=== PATIENT | male | born 1945 | race Caucasian/White ===

== ENCOUNTER 2019-09-28 20:47 | Inpatient (IN) ==
[2019-09-28] MEDS ORDERED: 0.9 % Sodium Chloride 500 ML IVC ONE ×2 (21:00→21:24)
[2019-09-28 21:39] LABS: Hematocrit 38.1 % (37.5-50.1); Hemoglobin 12.8 g/dL (12.9-16.9); Mean Corpuscular HGB Conc 33.6 g/dL (31.6-35.5); Mean Corpuscular Hemoglobin 30.8 pg (28.0-33.3); Mean Corpuscular Volume 91.6 fL (83.0-100.0); Mean Platelet Volume 11.4 fL (9.4-12.4); Platelet Count 172 K/mcL (140-400); Red Blood Count 4.16 M/mcL (4.19-5.50); Red Cell Distribution Width 13.9 % (11.5-14.5)
[2019-09-28] MEDS ORDERED: Piperacillin/Tazobactam 3.375 GM in 0.9 % Sodium Chloride Mini Bag 100 ML IVPB ONE (21:42)
[2019-09-28] MEDS ORDERED: Vancomycin 1,500 MG/265 ML IV.SOLN IVPB ONE (21:42)
[2019-09-28] MEDS ORDERED: Azithromycin 500 MG in 0.9 % Sodium Chloride 250 ML IVPB ONE (21:42)
[2019-09-28 22:05] LABS: Alanine Aminotransferase 26 Units/L (7-52); Albumin 3.7 g/dL (3.5-5.7); Albumin/Globulin Ratio 1.4 (1.1-2.2); Alkaline Phosphatase 51 Units/L (34-104); Aspartate Amino Transferase 54 Units/L (13-39); BUN/Creatinine Ratio 16 (6-26); Bilirubin,Direct 0.8 mg/dL (0.0-0.2); Bilirubin,Indirect 4.2 mg/dL (0.0-1.0); Blood Urea Nitrogen 23 mg/dL (8-23); Calcium 8.9 mg/dL (8.6-10.3); Carbon Dioxide 22 mEq/L (23-29); Chloride 95 mEq/L (98-107); Ethanol < 10 mg/dL (Less than 10); Globulin 2.6 g/dL (2.4-3.5); Glucose 116 mg/dL (70-105); Osmolality,Calculated 271 (280-300); Sodium 128 mEq/L (136-145); Total Protein 6.3 g/dL (6.4-8.9); Troponin I 0.07 ng/mL (< 0.04); eGFR For African Americans > 60 (> 60); eGFR For Non-African Americans 50 (> 60)
[2019-09-28 22:09] LABS: Dohle Bodies Present (Not Present); Lymphocytes # 1.2 K/mcL (0.6-4.6); Neutrophils # 11.1 K/mcL (1.6-8.9); Reactive Lymphocytes Present (Not Present)
[2019-09-28 22:11] LABS: Platelet Estimate Normal (Normal)
[2019-09-28 22:18] LABS: Poikilocytosis 1+ (Not Present)
[2019-09-28] MEDS ORDERED: Piperacillin/Tazobactam 3.375 GM in Water for inj. (sterile) 20 ML IVP ONE (23:10)
[2019-09-29] MEDS ORDERED: Norepinephrine 4 MG/254 ML IV.SOLN IVC SCH (03:00)
[2019-09-29] MEDS: Norepinephrine 4 MG/254 ML IV.SOLN IVC SCH ×2 (03:49→09:53)
[2019-09-29] MEDS ORDERED: Naloxone 0.4 MG/ML INJ IVP PRN (05:09)
[2019-09-29] MEDS: Piperacillin/Tazobactam 3.375 GM in 0.9 % Sodium Chloride Mini Bag 100 ML IVPB SCH ×2 (06:28→15:54)
[2019-09-29 06:31] LABS: ABG Base Excess -1 mEq/L (-2 to 3); ABG HCO3 23 mEq/L (21-27); ABG Oxygen Saturation 99 % (95-98); ABG PCO2 36 mmHg (35-45); ABG PH 7.41 pH Units (7.32-7.45); ABG PO2 149 mmHg (85-104); ABG TCO2 24 mEq/L (20-26); Blood Gas Modality avaps; Blood Gas Pressure Support 10 cm H2O; Blood Gas VT 500 cc
[2019-09-29 06:37] LABS: Hematocrit 36.5 % (37.5-50.1); Hemoglobin 11.9 g/dL (12.9-16.9); Mean Corpuscular HGB Conc 32.6 g/dL (31.6-35.5); Mean Corpuscular Hemoglobin 29.9 pg (28.0-33.3); Mean Corpuscular Volume 91.7 fL (83.0-100.0); Mean Platelet Volume 10.6 fL (9.4-12.4); Platelet Count 184 K/mcL (140-400); Red Blood Count 3.98 M/mcL (4.19-5.50); Red Cell Distribution Width 14.1 % (11.5-14.5)
[2019-09-29 07:04] LABS: Alanine Aminotransferase 25 Units/L (7-52); Albumin 3.5 g/dL (3.5-5.7); Albumin/Globulin Ratio 1.3 (1.1-2.2); Alkaline Phosphatase 53 Units/L (34-104); Aspartate Amino Transferase 48 Units/L (13-39); BUN/Creatinine Ratio 20 (6-26); Bilirubin,Total 5.1 mg/dL (0.3-1.0); Blood Urea Nitrogen 22 mg/dL (8-23); Calcium 8.7 mg/dL (8.6-10.3); Carbon Dioxide 24 mEq/L (23-29); Chloride 98 mEq/L (98-107); Globulin 2.6 g/dL (2.4-3.5); Glucose 118 mg/dL (70-105); Large Platelets Present (Not Present); Lymphocytes # 0.9 K/mcL (0.6-4.6); Magnesium 1.7 mg/dL (1.6-2.6); Monocytes # 0.3 K/mcL (0.0-1.3); Neutrophils # 13.8 K/mcL (1.6-8.9); Osmolality,Calculated 276 (280-300); Phosphorous 2.7 mg/dL (2.7-4.5); Platelet Estimate Normal (Normal); Poikilocytosis 1+ (Not Present); Potassium 3.8 mEq/L (3.5-5.1); Sodium 131 mEq/L (136-145); Total Protein 6.1 g/dL (6.4-8.9); Toxic Granulation Present (Not Present); Troponin I 0.05 ng/mL (< 0.04); eGFR For African Americans > 60 (> 60); eGFR For Non-African Americans > 60 (> 60)
[2019-09-29 07:05] LABS: Reactive Lymphocytes Present (Not Present)
[2019-09-29] MEDS ORDERED: *HR* LORazepam 2 MG/ML VIAL IVP PRN ×3 (07:34)
[2019-09-29] MEDS ORDERED: Perflutren Lipid Microsphere 1.3 ML in 0.9 % Sodium Chloride 8.7 ML IVP ONE (09:16)
[2019-09-29 09:30] LABS: D-Dimer 1231 ng/mLFEU (0-500)
[2019-09-29 09:32] LABS: Fibrinogen 816 mg/dL (169-393)
[2019-09-29 09:48] LABS: Hepatitis B Surface Antigen Nonreactive (Nonreactive)
[2019-09-29 10:17] LABS: Hepatitis B Core IgM Nonreactive (Nonreactive); Hepatitis C Virus Antibody Nonreactive (Nonreactive)
[2019-09-29 10:19] LABS: Hepatitis A Antibody IgM Nonreactive (Nonreactive)
[2019-09-29] MEDS ORDERED: Vancomycin 1,500 MG/265 ML IV.SOLN IVPB SCH (11:00)
[2019-09-29 14:32] LABS: Amphetamine Screen,Urine Negative ng/mL (Cutoff=1000); Barbiturate Screen,Urine Negative ng/mL (Cutoff=200); Benzodiazepines Screen,Urine Negative ng/mL (Cutoff=200); Cannabinoid Screen,Urine Negative ng/mL (Cutoff = 50); Cocaine Screen,Urine Negative ng/mL (Cutoff= 300); Opiate Screen,Urine Negative ng/mL (Cutoff=300); Phencyclidine Screen,Urine Negative ng/mL (Cutoff=25)
[2019-09-29] MEDS ORDERED: Thiamine (B-1) 100 MG, Folic Acid 1 MG, MVI, adult with vitamin K 10 ML in 0.9 % Sodi... IVPB SCH (18:00)
[2019-09-29] MEDS ORDERED: Azithromycin 500 MG in D5% in Water 250 ML IVPB SCH (21:00)
[2019-09-30] MEDS: Piperacillin/Tazobactam 3.375 GM in 0.9 % Sodium Chloride Mini Bag 100 ML IVPB SCH ×3 (01:06→16:50)
[2019-09-30 05:18] LABS: Basophils % 0.2 %; Eosinophils # 0.3 K/mcL (0.0-0.6); Eosinophils % 2.3 %; Hematocrit 36.3 % (37.5-50.1); Hemoglobin 11.8 g/dL (12.9-16.9); Immature Granulocytes % 0.4 % (0-4); Lymphocytes % 8.1 %; Mean Corpuscular HGB Conc 32.5 g/dL (31.6-35.5); Mean Corpuscular Hemoglobin 29.9 pg (28.0-33.3); Mean Corpuscular Volume 92.1 fL (83.0-100.0); Mean Platelet Volume 11.3 fL (9.4-12.4); Monocytes # 0.7 K/mcL (0.0-1.3); Monocytes % 5.7 %; Platelet Count 157 K/mcL (140-400); Red Blood Count 3.94 M/mcL (4.19-5.50); Red Cell Distribution Width 13.7 % (11.5-14.5); Segmented Neutrophils % 83.3 %
[2019-09-30 05:42] LABS: Alanine Aminotransferase 27 Units/L (7-52); Albumin 3.5 g/dL (3.5-5.7); Albumin/Globulin Ratio 1.3 (1.1-2.2); Alkaline Phosphatase 57 Units/L (34-104); Aspartate Amino Transferase 37 Units/L (13-39); BUN/Creatinine Ratio 19 (6-26); Bilirubin,Total 4.4 mg/dL (0.3-1.0); Blood Urea Nitrogen 14 mg/dL (8-23); Calcium 8.8 mg/dL (8.6-10.3); Carbon Dioxide 26 mEq/L (23-29); Chloride 99 mEq/L (98-107); Globulin 2.7 g/dL (2.4-3.5); Glucose 93 mg/dL (70-105); Osmolality,Calculated 280 (280-300); Potassium 3.2 mEq/L (3.5-5.1); Sodium 135 mEq/L (136-145); Total Protein 6.2 g/dL (6.4-8.9); eGFR For African Americans > 60 (> 60); eGFR For Non-African Americans > 60 (> 60)
[2019-09-30 06:07] LABS: Magnesium 1.9 mg/dL (1.6-2.6); Phosphorous 1.8 mg/dL (2.7-4.5)
[2019-09-30 06:08] LABS: Activated Partial Thrombo Time 27.4 Seconds (26.0-36.0)
[2019-09-30 06:09] LABS: INR 1.3; Prothrombin Time 14.9 Seconds (9.4-12.1)
[2019-09-30] MEDS ORDERED: Potassium Chloride 40 MEQ/200 ML BAG IVPB PRN ×2 (06:09→10:49)
[2019-09-30] MEDS ORDERED: Potassium Phosphate 44 MEQ in 0.9 % Sodium Chloride 250 ML IVPB PRN ×2 (06:14→10:49)
[2019-09-30] MEDS ORDERED: cefTRIAXone 2,000 MG in Water for inj. (sterile) 20 ML IVP SCH (09:00)
[2019-09-30] MEDS ORDERED: predniSONE 20 MG TABLET PO SCH (09:00)
[2019-09-30] MEDS ORDERED: Budesonide/Formoterol 160/4.5 1 PUFF INH IH SCH (10:00)
[2019-09-30] MEDS ORDERED: *HR* Heparin 5,000 UNIT/ML VIAL IVP ONE (10:10)
[2019-09-30] MEDS ORDERED: *HR* Heparin 5,000 UNIT/ML VIAL IVP PRN ×2 (10:10)
[2019-09-30] MEDS ORDERED: Heparin 25,000 UNIT/250 ML D5W 25,000 UNIT/250 ML IV.SOLN IVC SCH (10:15)
[2019-09-30] MEDS ORDERED: Thiamine (B-1) 100 MG, Folic Acid 1 MG, MVI, adult with vitamin K 10 ML in 0.9 % Sodi... IVPB SCH (18:00)
[2019-09-30] MEDS: Budesonide/Formoterol 160/4.5 1 PUFF INH IH SCH (20:18)
[2019-09-30] MEDS ORDERED: Azithromycin 500 MG in D5% in Water 250 ML IVPB SCH (21:00)
[2019-10-01] MEDS: Piperacillin/Tazobactam 3.375 GM in 0.9 % Sodium Chloride Mini Bag 100 ML IVPB SCH ×2 (00:33→08:30)
[2019-10-01 02:20] LABS: Hemoglobin 11.2 g/dL (12.9-16.9); Mean Corpuscular HGB Conc 31.1 g/dL (31.6-35.5); Mean Corpuscular Hemoglobin 29.6 pg (28.0-33.3); Mean Corpuscular Volume 95.2 fL (83.0-100.0); Mean Platelet Volume 11.2 fL (9.4-12.4); Platelet Count 161 K/mcL (140-400); Red Blood Count 3.78 M/mcL (4.19-5.50); Red Cell Distribution Width 13.8 % (11.5-14.5)
[2019-10-01 02:24] LABS: INR 1.2; Prothrombin Time 13.5 Seconds (9.4-12.1)
[2019-10-01 02:27] LABS: Activated Partial Thrombo Time 23.2 Seconds (26.0-36.0)
[2019-10-01 02:41] LABS: Magnesium 1.8 mg/dL (1.6-2.6); Phosphorous 2.1 mg/dL (2.7-4.5)
[2019-10-01 06:38] VITALS: BP 116/67
[2019-10-01 07:00] LABS: BUN/Creatinine Ratio 17 (6-26); Blood Urea Nitrogen 11 mg/dL (8-23); Calcium 8.5 mg/dL (8.6-10.3); Carbon Dioxide 27 mEq/L (23-29); Chloride 99 mEq/L (98-107); Glucose 104 mg/dL (70-105); Osmolality,Calculated 278 (280-300); Potassium 3.2 mEq/L (3.5-5.1); Sodium 134 mEq/L (136-145); eGFR For African Americans > 60 (> 60); eGFR For Non-African Americans > 60 (> 60)
[2019-10-01] MEDS: Budesonide/Formoterol 160/4.5 1 PUFF INH IH SCH (07:57)
[2019-10-01] MEDS ORDERED: predniSONE 20 MG TABLET PO SCH (09:00)
[2019-10-01] MEDS: Potassium Chloride Elixir 20 MEQ/15 ML UDC PO SCH ×2 (09:38→12:25)
== END 2019-10-01 12:51 | disposition home or self-care (01) | DRG 871 ==
LOC: EMEROOARM 20:47 → ICNU 20:47 → OBSVTOIN 09-29 03:37 → ICNU 09-29 06:01 → 2ANU 09-30 17:28
PROVIDERS: ADMIT Family Medicine; ATTEND Family Medicine

== ENCOUNTER 2020-02-25 03:42 | Inpatient (IN) ==
[2020-02-25] MEDS ORDERED: Furosemide 40 MG/4 ML VIAL IVP ONE (04:12)
[2020-02-25 04:37] LABS: Basophils # 0.1 K/mcL (0.0-0.2); Basophils % 0.7 %; Eosinophils # 0.1 K/mcL (0.0-0.6); Eosinophils % 1.1 %; Hematocrit 42.7 % (37.5-50.1); Hemoglobin 13.2 g/dL (12.9-16.9); Immature Granulocytes % 0.3 % (0-4); Lymphocytes # 1.6 K/mcL (0.6-4.6); Lymphocytes % 15.8 %; Mean Corpuscular HGB Conc 30.9 g/dL (31.6-35.5); Mean Corpuscular Hemoglobin 28.2 pg (28.0-33.3); Mean Corpuscular Volume 91.2 fL (83.0-100.0); Mean Platelet Volume 11.5 fL (9.4-12.4); Monocytes # 0.8 K/mcL (0.0-1.3); Monocytes % 7.9 %; Neutrophils # 7.4 K/mcL (1.6-8.9); Platelet Count 264 K/mcL (140-400); Red Blood Count 4.68 M/mcL (4.19-5.50); Red Cell Distribution Width 15.3 % (11.5-14.5); Segmented Neutrophils % 74.2 %
[2020-02-25 04:49] LABS: INR 1.4; Prothrombin Time 15.6 Seconds (9.4-12.1)
[2020-02-25 05:00] LABS: Alanine Aminotransferase 61 Units/L (7-52); Albumin 4.2 g/dL (3.5-5.7); Albumin/Globulin Ratio 1.5 (1.1-2.2); Alkaline Phosphatase 120 Units/L (34-104); Aspartate Amino Transferase 58 Units/L (13-39); BUN/Creatinine Ratio 22 (6-26); Bilirubin,Direct 0.6 mg/dL (0.0-0.2); Bilirubin,Total 3.6 mg/dL (0.3-1.0); Blood Urea Nitrogen 20 mg/dL (8-23); Calcium 9.5 mg/dL (8.6-10.3); Carbon Dioxide 21 mEq/L (23-29); Chloride 105 mEq/L (98-107); Globulin 2.8 g/dL (2.4-3.5); Glucose 124 mg/dL (70-105); Osmolality,Calculated 290 (280-300); Potassium 3.7 mEq/L (3.5-5.1); Sodium 138 mEq/L (136-145); Troponin I 0.07 ng/mL (< 0.04); eGFR For African Americans > 60 (> 60); eGFR For Non-African Americans > 60 (> 60)
[2020-02-25] MEDS ORDERED: Isovue-370 500 ML BOTTLE IVP ONE (05:03)
[2020-02-25 05:29] LABS: Adenovirus Not Detected (Not Detect); Coronavirus 229E Not Detected (Not Detect); Coronavirus HKU1 Not Detected (Not Detect); Coronavirus NL63 Not Detected (Not Detect); Coronavirus OC43 Not Detected (Not Detect); Human Metapneumovirus Not Detected (Not Detect); Human Rhinovirus/Enterovirus Not Detected (Not Detect); Influenza A Subtype 2009 H1 Not Detected (Not Detect); Influenza B Not Detected (Not Detect); Parainfluenza Virus 1 Not Detected (Not Detect); Parainfluenza Virus 2 Not Detected (Not Detect); Parainfluenza Virus 3 Not Detected (Not Detect); Parainfluenza Virus 4 Not Detected (Not Detect); Respiratory Syncytial Virus Not Detected (Not Detect); SARS-CoV-2 Not Detected (Not Detect)
[2020-02-25 05:30] LABS: Bordetella Pertussis Not Detected (Not Detect); Chlamydophila pneumoniae Not Detected (Not Detect); Mycoplasma pneumoniae Not Detected (Not Detect)
[2020-02-25] MEDS ORDERED: Furosemide 20 MG/2 ML VIAL IVP ONE (05:35)
[2020-02-25] MEDS ORDERED: Azithromycin 500 MG in 0.9 % Sodium Chloride 250 ML IVPB ONE (06:40)
[2020-02-25] MEDS ORDERED: cefTRIAXone 1,000 MG in 0.9 % Sodium Chloride Mini Bag 100 ML IVPB ONE (06:41)
[2020-02-25] MEDS ORDERED: *HR* HYDROcodone/Acet 5/325 mg TABLET PO PRN (07:35)
[2020-02-25] MEDS ORDERED: Acetaminophen 325 MG TABLET PO PRN (07:35)
[2020-02-25] MEDS ORDERED: Ondansetron 4 MG/2 ML VIAL IVP PRN (07:35)
[2020-02-25] MEDS ORDERED: Naloxone 0.4 MG/ML INJ IVP PRN (07:35)
[2020-02-25] MEDS ORDERED: Perflutren Lipid Microsphere 1.3 ML in 0.9 % Sodium Chloride 8.7 ML IVP PRN (07:55)
[2020-02-25 08:33] LABS: ABG Base Excess 1 mEq/L (-2 to 3); ABG HCO3 24 mEq/L (21-27); ABG Oxygen Saturation 93 % (95-98); ABG PCO2 34 mmHg (35-45); ABG PH 7.46 pH Units (7.32-7.45); ABG PO2 62 mmHg (85-104); ABG TCO2 25 mEq/L (20-26)
[2020-02-25] MEDS ORDERED: Metoprolol XL (24 HR) Succ 50 MG TAB.ER.24H PO SCH (09:00)
[2020-02-25] MEDS: Aspirin 81 MG TAB.CHEW PO SCH (09:04)
[2020-02-25] MEDS: Piperacillin/Tazobactam 3.375 GM in 0.9 % Sodium Chloride Mini Bag 100 ML IVPB SCH ×3 (09:05→23:01)
[2020-02-25] MEDS: lisinopriL 10 MG TABLET PO SCH (09:05)
[2020-02-25] MEDS: Vitamin B Complex/Vit C/Vit E 1 EACH TABLET PO SCH (09:05)
[2020-02-25] MEDS: Folic Acid 1 MG TABLET PO SCH (09:05)
[2020-02-25] MEDS: Thiamine (B-1) 100 MG TABLET PO SCH (09:05)
[2020-02-25] MEDS ORDERED: Nitroglycerin 0.4 MG TAB.SUBL SL PRN (09:37)
[2020-02-25] MEDS: Vancomycin 1,250 MG/262.5 ML IV.SOLN IVPB SCH (09:41)
[2020-02-25 10:15] LABS: Chol/HDL Ratio 4.1 (0-4.9); Magnesium 1.8 mg/dL (1.6-2.6); Phosphorous 4.4 mg/dL (2.7-4.5)
[2020-02-25 10:20] LABS: Troponin I 0.06 ng/mL (< 0.04)
[2020-02-25 10:41] LABS: Thyroid Stimulating Hormone 1.262 mcIU/mL (0.340-5.600)
[2020-02-25] MEDS: Ipratropium/Albuterol Neb 3 ML IH SCH ×3 (11:11→22:23)
[2020-02-25] MEDS: Budesonide/Formoterol 80/4.5 1 PUFF INH IH SCH ×2 (11:11→22:23)
[2020-02-25] MEDS ORDERED: *HR* Heparin 5,000 UNIT/ML VIAL IVP ONE (13:49)
[2020-02-25] MEDS ORDERED: *HR* Heparin 5,000 UNIT/ML VIAL IVP PRN ×2 (13:49)
[2020-02-25] MEDS ORDERED: *HR* Heparin 5,000 UNIT/ML VIAL SQ SCH ×2 (14:00)
[2020-02-25] MEDS: Heparin 25,000UNIT/250ML 1/2NS 25,000 UNIT/250 ML IV.SOLN IVC SCH (14:21)
[2020-02-25 14:35] LABS: Hematocrit 39.8 % (37.5-50.1); Hemoglobin 12.3 g/dL (12.9-16.9); Mean Corpuscular HGB Conc 30.9 g/dL (31.6-35.5); Mean Corpuscular Hemoglobin 28.4 pg (28.0-33.3); Mean Corpuscular Volume 91.9 fL (83.0-100.0); Mean Platelet Volume 11.3 fL (9.4-12.4); Platelet Count 235 K/mcL (140-400); Red Blood Count 4.33 M/mcL (4.19-5.50); Red Cell Distribution Width 15.4 % (11.5-14.5); White Blood Count 9.1 K/mcL (4.3-11.1)
[2020-02-25 14:45] LABS: Heparin anti-factor XA UFH < 0.04 IU/mL (0.30-0.70)
[2020-02-25 14:46] LABS: INR 1.4; Prothrombin Time 16.5 Seconds (9.4-12.1)
[2020-02-25] MEDS: Furosemide 40 MG/4 ML VIAL IVP SCH ×2 (16:37→23:01)
[2020-02-26 03:00] LABS: Basophils # 0.1 K/mcL (0.0-0.2); Basophils % 0.7 %; Eosinophils # 0.4 K/mcL (0.0-0.6); Eosinophils % 3.9 %; Hematocrit 36.6 % (37.5-50.1); Hemoglobin 11.7 g/dL (12.9-16.9); Immature Granulocytes % 0.4 % (0-4); Lymphocytes # 1.9 K/mcL (0.6-4.6); Lymphocytes % 21.6 %; Mean Corpuscular Hemoglobin 28.1 pg (28.0-33.3); Mean Corpuscular Volume 87.8 fL (83.0-100.0); Mean Platelet Volume 10.7 fL (9.4-12.4); Monocytes # 0.8 K/mcL (0.0-1.3); Monocytes % 8.4 %; Neutrophils # 5.8 K/mcL (1.6-8.9); Platelet Count 223 K/mcL (140-400); Red Blood Count 4.17 M/mcL (4.19-5.50); Red Cell Distribution Width 15.5 % (11.5-14.5)
[2020-02-26 03:18] LABS: Magnesium 1.8 mg/dL (1.6-2.6); Phosphorous 4.9 mg/dL (2.7-4.5)
[2020-02-26 03:19] LABS: Alanine Aminotransferase 59 Units/L (7-52); Albumin 3.6 g/dL (3.5-5.7); Albumin/Globulin Ratio 1.5 (1.1-2.2); Alkaline Phosphatase 103 Units/L (34-104); Aspartate Amino Transferase 46 Units/L (13-39); BUN/Creatinine Ratio 20 (6-26); Bilirubin,Total 2.8 mg/dL (0.3-1.0); Blood Urea Nitrogen 22 mg/dL (8-23); Calcium 8.5 mg/dL (8.6-10.3); Carbon Dioxide 23 mEq/L (23-29); Chloride 105 mEq/L (98-107); Globulin 2.4 g/dL (2.4-3.5); Glucose 98 mg/dL (70-105); Osmolality,Calculated 285 (280-300); Potassium 2.8 mEq/L (3.5-5.1); Sodium 136 mEq/L (136-145); eGFR For African Americans > 60 (> 60); eGFR For Non-African Americans > 60 (> 60)
[2020-02-26] MEDS: Ipratropium/Albuterol Neb 3 ML IH SCH ×4 (03:42→21:19)
[2020-02-26 06:32] LABS: Folate > 22.3 ng/mL (3.0-16.0); Vitamin B12 347 pg/mL (250-1100)
[2020-02-26] MEDS: Vancomycin 1,250 MG/262.5 ML IV.SOLN IVPB SCH (07:47)
[2020-02-26] MEDS: Piperacillin/Tazobactam 3.375 GM in 0.9 % Sodium Chloride Mini Bag 100 ML IVPB SCH ×3 (08:37→23:24)
[2020-02-26] MEDS: Folic Acid 1 MG TABLET PO SCH (08:38)
[2020-02-26] MEDS: Vitamin B Complex/Vit C/Vit E 1 EACH TABLET PO SCH (08:38)
[2020-02-26] MEDS: Aspirin 81 MG TAB.CHEW PO SCH (08:38)
[2020-02-26] MEDS: Thiamine (B-1) 100 MG TABLET PO SCH (08:38)
[2020-02-26] MEDS: Furosemide 40 MG/4 ML VIAL IVP SCH ×2 (08:39→20:36)
[2020-02-26] MEDS: Metoprolol XL (24 HR) Succ 50 MG TAB.ER.24H PO SCH (08:39)
[2020-02-26] MEDS: lisinopriL 10 MG TABLET PO SCH (08:39)
[2020-02-26] MEDS ORDERED: Azithromycin 500 MG in 0.9 % Sodium Chloride 250 ML IVPB SCH (09:00)
[2020-02-26] MEDS: Budesonide/Formoterol 80/4.5 1 PUFF INH IH SCH ×2 (10:26→21:21)
[2020-02-26 10:48] LABS: Estimated Average Glucose 131 mg/dl
[2020-02-26] MEDS: Heparin 25,000UNIT/250ML 1/2NS 25,000 UNIT/250 ML IV.SOLN IVC SCH (13:38)
[2020-02-26] MEDS: Benzonatate 100 MG CAPSULE PO PRN (21:50)
[2020-02-27] MEDS: Ipratropium/Albuterol Neb 3 ML IH SCH ×2 (04:18→10:13)
[2020-02-27] MEDS ORDERED: Cholecalciferol (D-3) 1,000 UNIT (25MCG) TABLET PO SCH (09:00)
[2020-02-27] MEDS ORDERED: THIAMINE HCL 50 MG PO SCH (09:00)
[2020-02-27] MEDS: Piperacillin/Tazobactam 3.375 GM in 0.9 % Sodium Chloride Mini Bag 100 ML IVPB SCH (09:09)
[2020-02-27] MEDS: Furosemide 40 MG/4 ML VIAL IVP SCH (09:10)
[2020-02-27] MEDS: Aspirin 81 MG TAB.CHEW PO SCH (09:12)
[2020-02-27] MEDS: Thiamine (B-1) 100 MG TABLET PO SCH (09:12)
[2020-02-27] MEDS: lisinopriL 10 MG TABLET PO SCH (09:12)
[2020-02-27] MEDS: Folic Acid 1 MG TABLET PO SCH (09:12)
[2020-02-27] MEDS: Benzonatate 100 MG CAPSULE PO PRN (09:12)
[2020-02-27] MEDS: Vitamin B Complex/Vit C/Vit E 1 EACH TABLET PO SCH (09:12)
[2020-02-27] MEDS: Metoprolol XL (24 HR) Succ 50 MG TAB.ER.24H PO SCH (09:12)
[2020-02-27] MEDS: Budesonide/Formoterol 80/4.5 1 PUFF INH IH SCH (10:13)
[2020-02-27 10:28] VITALS: BP 111/78
[2020-02-27] MEDS ORDERED: Metoprolol XL (24 HR) Succ 50 MG TAB.ER.24H PO SCH (21:00)
== END 2020-02-27 11:44 | disposition home or self-care (01) | DRG 177 ==
LOC: 2ANU 03:42 → EMEROOARM 03:42 → SUATTDRO 06:51 → 2ANU 08:15
PROVIDERS: ADMIT Family Medicine; ATTEND Internal Medicine